=== PATIENT | male | born 1965 | race Caucasian/White ===

== ENCOUNTER → 2017-04-09 | Outpatient (CLI) | payer BC ==
--- NOTE | 2017-04-09 16:45 | CT ---
EXAMINATION TYPE: CT lumbar spine wo con DATE OF EXAM: 04/09/2017 COMPARISON: MRI lumbar spine 02/22/2010 HISTORY: Patient complains of right buttock, right knee, and right first digit numbness. CT DLP: 983 mGycm CONTRAST: None TECHNIQUE: CT of the lumbar spine is performed on a spiral scan at 3 mm thick sections. Reconstructed images are performed in the coronal and sagittal planes. FINDINGS: T12-L1: No focal disc herniation or significant disc bulge is evident. No spinal canal stenosis or neural foraminal stenosis is present. L1-L2: No focal disc herniation or significant disc bulge is evident. No spinal canal stenosis or n eural foraminal stenosis is present L2-L3: No focal disc herniation or significant disc bulge is evident. No spinal canal stenosis or n eural foraminal stenosis is present L3-L4: No focal disc herniation or significant disc bulge is evident. No spinal canal stenosis or n eural foraminal stenosis is present L4-L5: Broad-based disc bulge is present with moderate anterior thecal sac compression. No AP spinal canal stenosis present. Some mild neural foraminal narrowing may be present. No nerve root impingemen t is identified. L5-S1: Mild degenerative disc changes are present. No AP spinal canal stenosis present. Neural forame n are patent. Vertebral alignment appears normal. IMPRESSION: 1. Mild broad-based disc bulge L4-5 with moderate anterior thecal sac flattening. No spinal canal doron nosis present. 2. Foraminal narrowing L4-5 secondary to disc bulging. 3. Degenerative disc changes L5-S1
== END | disposition home or self-care (01) ==
LOC: RADCTMAIN 15:45
PROVIDERS: ATTEND Family Medicine
DX: M99.73 Connective tissue and disc stenosis of intervertebral foramina of lumbar region (principal); M51.16 Intervertebral disc disorders with radiculopathy, lumbar region; M47.27 Other spondylosis with radiculopathy, lumbosacral region
CPT/HCPCS: 72131

== ENCOUNTER → 2017-05-09 | Outpatient (CLI) | payer BC ==
--- NOTE | 2017-05-11 13:36 | US ---
EXAMINATION TYPE: US bladder DATE OF EXAM: 05/10/2017 COMPARISON: NONE CLINICAL HISTORY: R33.9 Retention of urine. EXAM MEASUREMENTS: Post Void Residual Volume: 323 mL Bladder is satisfactorily distended without intraluminal mass or wall thickening. Bilateral distal ur eter jets are seen. After voiding twice significant amount of residual urine is present. Color Doppler performed to assess ureteral jets. Bilateral Jets seen: Yes Normal Post Void Residual (less than 50ml): No IMPRESSION: Abnormal post void residual is confirmed.
== END | disposition home or self-care (01) ==
LOC: RADUSWWP 07:47
PROVIDERS: ATTEND Family Medicine
DX: R33.9 Retention of urine, unspecified (principal)
CPT/HCPCS: 76857

== ENCOUNTER 2019-12-03 18:09 | Emergency (ER) | payer BC ==
[2019-12-03 18:24] VITALS: RESP 18
[2019-12-03] MEDS ORDERED: SODIUM CHLORIDE 0.9% 1,000 ML IV STA (18:34)
[2019-12-03] MEDS ORDERED: KETOROLAC 30 MG/ML 1 ML VIAL IVP STA (18:34)
[2019-12-03] MEDS ORDERED: METOCLOPRAMIDE 5 MG/ML 2 ML VIAL IVP STA (18:34)
--- NOTE | 2019-12-03 18:37 | ED ---
General Adult HPI - General Chief complaint: Abdominal Pain Stated complaint: Right flank pain Time Seen by Provider: 12/03/19 18:27 Source: patient, RN notes reviewed Mode of arrival: ambulatory Limitations: no limitations - History of Present Illness Initial comments: Patient is a pleasant 54-year-old male presenting to the emergency Department with right flank pain. Onset of symptoms was around 3 hours ago. Sudden onset. Discomfort is right posterior flank. Patient has urinary urgency however has not urinated. Patient has nausea however no vomiting. No fever. No history of similar symptoms previously. Patient states it is difficult to get comfortable. No history of similar symptoms previously. - Related Data Home Medications Medication Instructions Recorded Confirmed Albuterol Inhaler [Ventolin Hfa 2 puff INHALATION RT-Q4H PRN 12/03/19 12/03/19 Inhaler] Cetirizine HCl [Zyrtec] 10 mg PO HS 12/03/19 12/03/19 Unknown Sports Cream (For 1 applic TOPICAL ONCE PRN 12/03/19 12/03/19 Arthritis) Previous Rx's Medication Instructions Recorded Ketorolac [Toradol] 10 mg PO Q6HR PRN #15 tab 12/03/19 Metoclopramide HCl [Reglan] 10 mg PO Q6HR PRN #15 tablet 12/03/19 Allergies Allergy/AdvReac Type Severity Reaction Status Date / Time No Known Allergies Allergy Verified 12/03/19 18:53 Review of Systems ROS Statement: Those systems with pertinent positive or pertinent negative responses have been documented in the HPI. ROS Other: All systems not noted in ROS Statement are negative. Constitutional: Denies: fever Eyes: Denies: eye pain ENT: Denies: ear pain Respiratory: Denies: cough Cardiovascular: Denies: chest pain Endocrine: Denies: fatigue Gastrointestinal: Reports: as per HPI, nausea. Denies: vomiting Genitourinary: Reports: as per HPI, urgency Musculoskeletal: Reports: as per HPI Skin: Denies: rash Neurological: Denies: weakness Past Medical History Past Medical History: Asthma History of Any Multi-Drug Resistant Organisms: None Reported Past Surgical History: Prostate Surgery Past Psychological History: Anxiety Smoking Status: Never smoker Past Alcohol Use History: Occasional General Exam Limitations: no limitations General appearance: alert, in no apparent distress Head exam: Present: normocephalic Eye exam: Present: normal appearance Neck exam: Present: normal inspection Respiratory exam: Present: normal lung sounds bilaterally Cardiovascular Exam: Present: regular rate, normal rhythm Expanded Peripheral pulses: 2+: Dorsalis Pedis (R), Dorsalis Pedis (L) GI/Abdominal exam: Present: soft, normal bowel sounds. Absent: distended, te nderness, guarding, rebound, rigid, pulsatile mass Extremities exam: Present: normal inspection Back exam: Present: other (Mild tenderness below the right CVA) Neurological exam: Present: alert. Absent: motor sensory deficit Psychiatric exam: Present: normal affect, normal mood Skin exam: Present: normal color Course Vital Signs 12/03/19 18:20 Temperature 98.6 F Pulse Rate 56 L Respiratory 18 Rate Blood Pressure 126/81 O2 Sat by Pulse 100 Oximetry Medical Decision Making - Medical Decision Making Patient reevaluated and significant improved. Patient sitting upright in bed and is comfortable. Patient updated on results. - Lab Data Result diagrams: 12/03/19 18:52 12/03/19 18:52 Lab Results 12/03/19 12/03/19 12/03/19 Range/Units 18:52 18:52 18:52 WBC 9.9 (3.8-10.6) k/uL RBC 4.78 (4.30-5.90) m/uL Hgb 14.8 (13.0-17.5) gm/dL Hct 43.8 (39.0-53.0) % MCV 91.5 (80.0-100.0) fL MCH 30.9 (25.0-35.0) pg MCHC 33.8 (31.0-37.0) g/dL RDW 12.2 (11.5-15.5) % Plt Count 192 (150-450) k/uL Neutrophils % 93 % Lymphocytes % 3 % Monocytes % 2 % Eosinophils % 1 % Basophils % 0 % Neutrophils # 9.2 H (1.3-7.7) k/uL Lymphocytes # 0.3 L (1.0-4.8) k/uL Monocytes # 0.2 (0-1.0) k/uL Eosinophils # 0.1 (0-0.7) k/uL Basophils # 0.0 (0-0.2) k/uL PT (9.0-12.0) sec INR (<1.2) APTT (22.0-30.0) sec Sodium 139 (137-145) mmol/L Potassium 3.6 (3.5-5.1) mmol/L Chloride 104 (98-107) mmol/L Carbon Dioxide 24 (22-30) mmol/L Anion Gap 11 mmol/L BUN 15 (9-20) mg/dL Creatinine 1.22 (0.66-1.25) mg/dL Est GFR (CKD-EPI)AfAm 79 (>60 ml/min/1.73 sqM) Est GFR (CKD-EPI)NonAf 68 (>60 ml/min/1.73 sqM) Glucose 155 H (74-99) mg/dL Calcium 9.1 (8.4-10.2) mg/dL Total Bilirubin 2.0 H (0.2-1.3) mg/dL AST 24 (17-59) U/L ALT 20 (4-49) U/L Alkaline Phosphatase 99 (38-126) U/L Total Protein 7.0 (6.3-8.2) g/dL Albumin 4.8 (3.5-5.0) g/dL Amylase 57 (30-110) U/L Lipase 43 (23-300) U/L Urine Color Yellow Urine Appearance Clear (Clear) Urine pH 5.5 (5.0-8.0) Ur Specific [place] 1.019 (1.001-1.035) Urine Protein Negative (Negative) Urine Glucose (UA) Negative (Negative) Urine Ketones 1+ H (Negative) Urine Blood Moderate H (Negative) Urine Nitrite Negative (Negative) Urine Bilirubin Negative (Negative) Urine Urobilinogen <2.0 (<2.0) mg/dL Ur Leukocyte Esterase Negative (Negative) Urine RBC 37 H (0-5) /hpf Urine WBC 3 (0-5) /hpf Hyaline Casts 1 (0-2) /lpf Urine Mucus Rare H (None) /hpf 12/02/ Range/Units 18:52 WBC (3.8-10.6) k/uL RBC (4.30-5.90) m/uL Hgb (13.0-17.5) gm/dL Hct (39.0-53.0) % MCV (80.0-100.0) fL MCH (25.0-35.0) pg MCHC (31.0-37.0) g/dL RDW (11.5-15.5) % Plt Count (150-450) k/uL Neutrophils % % Lymphocytes % % Monocytes % % Eosinophils % % Basophils % % Neutrophils # (1.3-7.7) k/uL Lymphocytes # (1.0-4.8) k/uL Monocytes # (0-1.0) k/uL Eosinophils # (0-0.7) k/uL Basophils # (0-0.2) k/uL PT 10.5 (9.0-12.0) sec INR 1.0 (<1.2) APTT 23.5 (22.0-30.0) sec Sodium (137-145) mmol/L Potassium (3.5-5.1) mmol/L Chloride (98-107) mmol/L Carbon Dioxide (22-30) mmol/L Anion Gap mmol/L BUN (9-20) mg/dL Creatinine (0.66-1.25) mg/dL Est GFR (CKD-EPI)AfAm (>60 ml/min/1.73 sqM) Est GFR (CKD-EPI)NonAf (>60 ml/min/1.73 sqM) Glucose (74-99) mg/dL Calcium (8.4-10.2) mg/dL Total Bilirubin (0.2-1.3) mg/dL AST (17-59) U/L ALT (4-49) U/L Alkaline Phosphatase (38-126) U/L Total Protein (6.3-8.2) g/dL Albumin (3.5-5.0) g/dL Amylase (30-110) U/L Lipase (23-300) U/L Urine Color Urine Appearance (Clear) Urine pH (5.0-8.0) Ur Specific [place] (1.001-1.035) Urine Protein (Negative) Urine Glucose (UA) (Negative) Urine Ketones (Negative) Urine Blood (Negative) Urine Nitrite (Negative) Urine Bilirubin (Negative) Urine Urobilinogen (<2.0) mg/dL Ur Leukocyte Esterase (Negative) Urine RBC (0-5) /hpf Urine WBC (0-5) /hpf Hyaline Casts (0-2) /lpf Urine Mucus (None) /hpf - Radiology Data Radiology results: report reviewed (Computed tomography scan of the abdomen and pelvis shows mild right-sided hydronephrosis and hydroureter with 3 mm calculi right UVJ.), image reviewed Disposition Clinical Impression: Ureterolithiasis Disposition: HOME SELF-CARE Condition: Stable Instructions (If sedation given, give patient instructions): Kidney Stones (ED) Additional Instructions: Please follow-up with primary care physician in the next couple days for recheck. Do not get dehydrated. Return for fevers, increased pain, vomiting, worsening symptoms or other concerns. Prescriptions sent to [facility] Prescriptions: Metoclopramide HCl [Reglan] 10 mg PO Q6HR PRN #15 tablet PRN Reason: Nausea Ketorolac [Toradol] 10 mg PO Q6HR PRN #15 tab PRN Reason: Pain Is patient prescribed a controlled substance at d/c from ED?: No Referrals: Ankur Murcia MD [Primary Care Provider] - 1-2 days Time of Disposition: 20:00
[2019-12-03 19:11] LABS: Appearance,Urine Clear (Clear); Bilirubin,Urine Negative (Negative); Blood,Urine Moderate (Negative); Color,Urine Yellow; Glucose,Urine (UA) Negative (Negative); Hyaline Casts,Urine 1 /lpf (0-2); Ketones,Urine 1+ (Negative); Leukocyte Esterase,Urine Negative (Negative); Mucus,Urine Rare /hpf; Nitrite,Urine Negative (Negative); PH, Urine 5.5 (5.0-8.0); Protein,Urine Negative (Negative); RBC,Urine 37 /hpf (0-5); Specific Gravity,Urine 1.019 (1.001-1.035); Urobilinogen,Urine <2.0 mg/dL (<2.0); WBC,Urine 3 /hpf (0-5)
[2019-12-03 19:12] LABS: Basophils % (A) 0 %; Eosinophils # (A) 0.1 k/uL (0-0.7); Eosinophils % (A) 1 %; HCT 43.8 % (39.0-53.0); HGB 14.8 gm/dL (13.0-17.5); Lymphocytes # (A) 0.3 k/uL (1.0-4.8); Lymphocytes % (A) 3 %; MCH 30.9 pg (25.0-35.0); MCHC 33.8 g/dL (31.0-37.0); MCV 91.5 fL (80.0-100.0); Mean Platelet Volume 8.9; Monocytes # (A) 0.2 k/uL (0-1.0); Monocytes % (A) 2 %; Neutrophils # (A) 9.2 k/uL (1.3-7.7); Neutrophils % (A) 93 %; Platelet Count 192 k/uL (150-450); RBC 4.78 m/uL (4.30-5.90); RDW 12.2 % (11.5-15.5); WBC 9.9 k/uL (3.8-10.6)
[2019-12-03 19:14] LABS: Partial Thromboplastin Time 23.5 sec (22.0-30.0); Prothrombin Time 10.5 sec (9.0-12.0)
[2019-12-03 19:31] LABS: Albumin 4.8 g/dL (3.5-5.0); Calcium 9.1 mg/dL (8.4-10.2); Potassium 3.6 mmol/L (3.5-5.1)
--- NOTE | 2019-12-03 19:53 | CT ---
EXAMINATION TYPE: CT abdomen pelvis wo con DATE OF EXAM: 12/03/2019 COMPARISON: None HISTORY: Right flank pain. CT DLP: 445 mGycm Automated exposure control for dose reduction was used. Multiple axial sections were obtained from the diaphragm to the floor the pelvis with no contrast. FINDINGS: Lung bases are clear. There is no pleural effusion. Heart size is normal. There is no pericardial eff usion. Liver spleen stomach pancreas gallbladder appear normal. Bile ducts are not dilated. There is no adrenal mass. There is mild right-sided hydronephrosis and perinephric edema. There is probably a 3 mm calculus at the right ureteral vesicle junction. Bladder distends smoothly. There is no inguinal hernia. There is no free fluid in the pelvis. There is no mesenteric edema. There is no ascites or free air. There is no evidence of bowel obstruction. Appendix is posterior and superior and appears normal. Lumbar vertebra have normal alignment. Disc spaces are fairly normal. There is no compression fractur e. Posterior elements are intact. Bony pelvis appears intact. IMPRESSION: Right-sided hydronephrosis and hydroureter with tiny calculus at the right ureterovesical junction ob structing the right upper collecting system. No other renal calculus seen. normal appendix.
--- NOTE | 2019-12-03 19:55 | XR ---
EXAMINATION TYPE: XR KUB DATE OF EXAM: 12/03/2019 COMPARISON: NONE HISTORY: Abdominal pain TECHNIQUE: 2 views upright FINDINGS: There is no sign of intestinal obstruction or pneumoperitoneum. Fecal pattern is normal. Th ere is no evidence of a mass. Lung bases are clear. IMPRESSION: Nonacute abdomen.
[2019-12-03 20:16] VITALS: BP 122/71; PULSE 71; TEMP 98
== END 2019-12-03 20:16 | disposition home or self-care (01) ==
LOC: EC 18:09
DX: N13.2 Hydronephrosis with renal and ureteral calculous obstruction (principal); J45.909 Unspecified asthma, uncomplicated; Z79.51 Long term (current) use of inhaled steroids
CPT/HCPCS: 99284; 96374; 96375; 96361; 36415; 80053; 82150; 83690; 85025; 85610; 85730; 81001; 74018; 74176; J2765; J1885

== ENCOUNTER 2021-07-20 15:30 | Emergency (ER) | payer BC ==
[2021-07-20 15:41] VITALS: RESP 18
[2021-07-20 16:53] LABS: Basophils % (A) 1 %; Eosinophils # (A) 0.1 k/uL (0-0.7); Eosinophils % (A) 2 %; HGB 14.4 gm/dL (13.0-17.5); Lymphocytes # (A) 0.7 k/uL (1.0-4.8); Lymphocytes % (A) 19 %; MCH 32.1 pg (25.0-35.0); MCHC 34.2 g/dL (31.0-37.0); MCV 93.7 fL (80.0-100.0); Mean Platelet Volume 8.6; Monocytes # (A) 0.2 k/uL (0-1.0); Monocytes % (A) 6 %; Neutrophils # (A) 2.6 k/uL (1.3-7.7); Neutrophils % (A) 70 %; Platelet Count 194 k/uL (150-450); RBC 4.49 m/uL (4.30-5.90); RDW 12.7 % (11.5-15.5); WBC 3.8 k/uL (3.8-10.6)
--- NOTE | 2021-07-20 16:54 | XR ---
EXAMINATION TYPE: XR chest 2V DATE OF EXAM: 07/20/2021 COMPARISON: NONE HISTORY: Chest pain TECHNIQUE: 2 views FINDINGS: Heart and mediastinum are normal. Lungs are clear. Diaphragm is normal. Bony thorax appears normal. IMPRESSION: Normal chest.
[2021-07-20 17:07] LABS: Albumin 4.4 g/dL (3.5-5.0); Calcium 8.8 mg/dL (8.4-10.2); Magnesium 2.2 mg/dL (1.6-2.3); Potassium 4.1 mmol/L (3.5-5.1); Total Bilirubin 1.4 mg/dL (0.2-1.3)
[2021-07-20 17:51] LABS: Partial Thromboplastin Time 28.6 sec (22.0-30.0)
--- NOTE | 2021-07-20 17:58 | ED ---
Chest Pain HPI - General Chief Complaint: Chest Pain Stated Complaint: Chest Pain Time Seen by Provider: 07/20/21 16:38 Source: patient Mode of arrival: wheelchair Limitations: no limitations - History of Present Illness Initial Comments: 85-year-old male with past medical history of asthma presents to the emergency department with chest pain. States he's had intermittent chest pain for the past week. Located substernal without radiation. Denies any provocative or palliative factors. Describes it as a pressure. Patient awoke this morning and had significant pain around 9 AM. Did not take any medications for his symptoms. States that the pain has almost entirely resolved at this time. No associated fevers, chills. No nausea or vomiting. No ripping or tearing sensation to his back. No family history of sudden cardiac or coronary disease at early age. He states he had a stress test 15 years ago and was normal. Denies history of peptic ulcer disease or gastritis. Patient is concerned for viral symptoms as well. States that he had some diarrhea last week. Also reports mild discomfort in his throat and chills. Patient was never tested for Covid but assumed it was positive. Denies any sick contacts. The viral symptoms started approximately 2 weeks ago and almost are entirely resolved. No vomiting. 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 ROS Other: All systems not noted in ROS Statement are negative. EKG Findings - EKG Comments: EKG Findings:: EKG demonstrates sinus rhythm with a rate of 60. CO interval 166. QRS 100. QTC 413. No acute ST segment elevations or depressions concerning for ischemic changes Past Medical History Past Medical History: Asthma History of Any Multi-Drug Resistant Organisms: None Reported Past Surgical History: Prostate Surgery Past Psychological History: Anxiety Smoking Status: Never smoker Past Alcohol Use History: Occasional General Exam Limitations: no limitations Course Vital Signs 07/20/21 07/20/21 07/20/21 15:39 18:07 20:14 Temperature 98.8 F 98.7 F Pulse Rate 75 56 L 57 L Respiratory 18 18 18 Rate Blood Pressure 140/90 123/77 122/85 O2 Sat by Pulse 98 99 97 Oximetry Chest Pain MDM - MDM 55-year-old male with past medical history of asthma presents to the emergency department with chest pain. States he's had intermittent chest pain for the past week. Located substernal without radiation. Denies any provocative or palliative factors. Describes it as a pressure. Patient awoke this morning and had significant pain around 9 AM. Did not take any medications for his symptoms. States that the pain has almost entirely resolved at this time. No associated fevers, chills. No nausea or vomiting. No ripping or tearing sensation to his back. No family history of sudden cardiac or coronary disease at early age. He states he had a stress test 15 years ago and was normal. Denies history of peptic ulcer disease or gastritis. Patient is concerned for viral symptoms as well. States that he had some diarrhea last week. Also reports mild discomfort in his throat and chills. Patient was never tested for Covid but assumed it was positive. Denies any sick contacts. The viral symptoms started approximately 2 weeks ago and almost are entirely resolved. No vomiting. 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 You may have this completed through your PCP. Please return to the emergency room for any new or worsening symptoms Is patient prescribed a controlled substance at d/c from ED?: No Referrals: Ankur Murcia MD [Primary Care Provider] - 1-2 days Time of Disposition: 19:42
[2021-07-20] MEDS ORDERED: LABETALOL 5 MG/ML VIAL MDV IVP STA (18:35)
[2021-07-20] MEDS ORDERED: PANTOPRAZOLE 40 MG/10 ML VIAL IVP STA (18:36)
[2021-07-20] MEDS ORDERED: DEXAMETHASONE SOD PHOSPHATE 10 MG/ML 1 ML VIAL IVP STA (19:37)
[2021-07-20 20:15] VITALS: BP 122/85; PULSE 57; TEMP 98.7
== END 2021-07-20 20:15 | disposition home or self-care (01) ==
LOC: EC 15:30
DX: R07.89 Other chest pain (principal); J02.9 Acute pharyngitis, unspecified; J45.909 Unspecified asthma, uncomplicated; F41.9 Anxiety disorder, unspecified
CPT/HCPCS: 99285; 96374; 96375; 36415; 93005; 80053; 83735; 84484; 85025; 85610; 85730; 87635; 71046; J1100; C9113

== ENCOUNTER → 2021-08-13 | Outpatient (CLI) | payer BC ==
--- NOTE | 2021-08-13 13:05 | NM ---
EXAMINATION TYPE: NM stress cardiolite complete DATE OF EXAM: 08/13/2021 COMPARISON: NONE HISTORY: Chest pain TECHNIQUE: After the intravenous administration of 10.1 mCi Tc 99m Sestamibi - Rest images obtained 50 minutes post injection. The patient exercised using a MARY protocol and 1 minute prior to peak exercise was injected with 24.2 mCi Tc 99m Sestamibi - Stress images obtained 20 minutes post injecti on. FINDINGS: Targeted heart rate was achieved during performance of the study patient achieved 85% of predicted ia ximal heart rate. Review of stress and rest SPECT images demonstrates some decreased anterior wall up take on stress as compared to rest images extending towards the lateral wall towards the base the hea rt. Gated analysis shows questionable paradoxical apical wall motion with an estimated left ventricu lar ejection fraction of 50 %. IMPRESSION: Stress-induced left ventricular myocardial ischemia is suspected, consider echocardiographic correlat ion of cardiac wall motion A Yellow level critical message alert has been initiated for Santo Elizalde Jr, DO via the [employer] Critical Results System on 08/13/2021 1:02 PM. This message alert has been sent to Santo horton Jr, DO via the preferences provided by the clinician for the receipt of Radiology Critical Finding s. Message ID [id number].
--- NOTE | 2021-08-13 15:42 | EST ---
EXERCISE STRESS AGE: 55 SEX: M HT: 6'2" WT: 170 lbs. PROTOCOL: Cardiolite Stress STAGE: 4 DURATION OF EXERCISE: 10:46 HEART RATE REST: 73 BLOOD PRESSURE REST: 128/84 MAXIMUM HEART RATE ACHIEVED: 142 MAXIMUM BLOOD PRESSURE: 181/78 85% MPHR: 142 100% MPHR: 167 METS: 11.8 INDICATIONS: Chest pain. CLINICAL INFORMATION: STRESS DATA: Heart rate is 75. Pressure is 128/84 mmHg. Baseline EKG showed sinus mechanism. The patient exercised on the treadmill according to Sb protocol for a total of 10 minutes and achieved 11.8 METS. Max heart rate was 142, which is about 85% of maximum predicted heart rate, and maximum blood pressure was 181/73 mmHg. Clinically the patient did not have any symptoms. The EKG did not show any significant ST or T- wave abnormalities concerning for ischemia. CONCLUSION: 1. Excellent exercise tolerance. 2. Normal EKG in response to exercise. 3. Please follow up on the Cardiolite portion on a separate report from Radiology Department. MMODL / IJN: [id number] /
--- NOTE | 2021-08-14 11:40 | ECHOF ---
Referral Reason:R07.89 chest pain MEASUREMENTS -------- HEIGHT: 182.9 cm WEIGHT: 77.1 kg BP: IVSd: 1.0 cm (0.6 - 1.1) LVIDd: 3.7 cm (3.9 - 5.3) LVPWd: 1.2 cm (0.6 - 1.1) IVSs: 1.3 cm LVIDs: 2.7 cm LVPWs: 1.7 cm Ao Diam: 3.1 cm (2.0 - 3.7) AV Cusp: 1.8 cm (1.5 - 2.6) LA Diam: 3.2 cm (2.7 - 3.8) MV EXCURSION: 22.907 mm (> 18.000) EPSS: 1.0 cm MV E Al: 0.50 m/s MV DecT: 198 ms MV A Al: 0.47 m/s MV E/A Ratio: 1.08 RAP: 5.00 mmHg RVSP: 18.23 mmHg FINDINGS -------- This was a technically difficult study with suboptimal views. The left ventricular size is normal. Left ventricular wall thickness is normal. Overall left vent ricular systolic function is low-normal with, an EF between 50 - 55 %. The right ventricle is normal in size. The left atrial size is normal. The right atrial size is normal. Lumason used The aortic valve was not well visualized. The mitral valve is normal. There is trace mitral regurgitation. The tricuspid valve appears structurally normal. Trace tricuspid regurgitation present. Right lynn tricular systolic pressure is normal at < 35 mmHg. There is no pulmonic regurgitation present. The aortic root size is normal. IVC Not well visulized. There is no pericardial effusion. CONCLUSIONS -------- 1. The left ventricular size is normal. 2. Left ventricular wall thickness is normal. 3. Overall left ventricular systolic function is low-normal with, an EF between 50 - 55 %. 4. There is trace mitral regurgitation. 5. Trace tricuspid regurgitation present. 6. There is no pericardial effusion. CROSSING GUARD: [place]i Oro [facility]
== END | disposition home or self-care (01) ==
LOC: RADNMMAIN 08:40
PROVIDERS: ATTEND Family Medicine
DX: I08.1 Rheumatic disorders of both mitral and tricuspid valves (principal)
CPT/HCPCS: 93017; 93306; 78452; A9500; Q9950

== ENCOUNTER 2022-01-14 16:57 | Emergency (ER) | payer BC ==
[2022-01-14 17:17] VITALS: BP 143/89; PULSE 69; RESP 14; TEMP 97.7
--- NOTE | 2022-01-14 17:42 | ED ---
General Adult HPI - General Chief complaint: Skin/Abscess/Foreign Body Stated complaint: Finger injury Time Seen by Provider: 01/14/22 17:22 Source: patient Mode of arrival: ambulatory Limitations: no limitations - History of Present Illness Initial comments: This 56-year-old male presents with a complaint of having a stiff neck. He states that this started approximately 4 days ago. He denies any actual head or neck injuries. He denies any physical activity. He denies any radiation of the pain. There's been no fevers or chills. He also complains of a scratchy throat as well as slight headache. He states that he has had some moderate fatigue recently which is abnormal for him. He denies any known sick exposures. He apparently was poked in the right index finger while putting on a shower head 8 days ago and was worried about the possibility of tetanus but I do not feel as though this is consistent with tetanus infection. He denies any significant cough or congestion. There is no difficulty in breathing. No other complaints or modifying factors. - Related Data Home Medications Medication Instructions Recorded Confirmed Cholecalciferol [Vitamin D3 (25 25 mcg PO DAILY 07/20/21 07/20/21 Mcg = 1000 Iu)] Loratadine [Claritin] 10 mg PO DAILY PRN 07/20/21 07/20/21 Multivitamins, Thera [Multivitamin 1 tab PO DAILY 07/20/21 07/20/21 (formulary)] Zinc 50 mg PO DAILY 07/20/21 07/20/21 Allergies Allergy/AdvReac Type Severity Reaction Status Date / Time No Known Allergies Allergy Verified 01/14/22 17:16 Review of Systems ROS Statement: Those systems with pertinent positive or pertinent negative responses have been documented in the HPI. ROS Other: All systems not noted in ROS Statement are negative. Past Medical History Past Medical History: Asthma History of Any Multi-Drug Resistant Organisms: None Reported Past Surgical History: Prostate Surgery Past Psychological History: Anxiety Smoking Status: Never smoker Past Alcohol Use History: Occasional General Exam - General Exam Comments Initial Comments: GENERAL: The patient is well nourished and well hydrated. VITAL SIGNS: Heart rate, blood pressure, respiratory rate reviewed as recorded in nurse's notes. EYES: Pupils are round and reactive. Extraocular movements are intact. No conjunctival / lid redness or swelling. ENT: No external evidence of injury, swelling, or ecchymosis. Airway is patent. Throat is clear. NECK: There is very minimal tenderness noted to the bilateral paracervical musculature. Is excellent range of motion of the neck with no meningeal signs. No swelling or evidence of injury. No subcutaneous emphysema. Trachea is midline. No thyroid mass. HEART: Regular rate and rhythm. Good peripheral pulses. LUNGS/CHEST: Breath sounds clear and equal bilaterally. No rales, rhonchi, or wheezes. No ecchymosis, subcutaneous emphysema, or tenderness. ABDOMEN: Abdomen soft without tenderness. No palpable masses or organomegaly. No peritoneal signs. No abdominal wall swelling or ecchymosis. EXTREMITIES: No extremity tenderness. Normal muscle tone and function. No thoracolumbar tenderness. NEUROLOGIC: Sensation is grossly intact. Cranial nerve exam reveals face is symmetrical, tongue is midline, speech is clear. SKIN: No abrasions or ecchymosis is noted. No induration or masses noted. PSYCHIATRIC: Alert and oriented. Appropriate behavior and judgment. Limitations: no limitations Course Vital Signs 01/14/22 17:14 Temperature 97.7 F Pulse Rate 69 Respiratory 14 Rate Blood Pressure 143/89 O2 Sat by Pulse 97 Oximetry Medical Decision Making - Medical Decision Making The patient was seen and examined. It is not felt as though his symptoms are consistent with tetanus and this is explained to him. His symptoms do seem somewhat consistent with the new strain of Covid and therefore this test is completed. The Covid test came back negative. The exact cause of his symptomatology is not definitively determine but it potentially could be related to a viral infection. He appears quite well clinically. It is felt as though he stable for discharge. Return parameters are discussed. Close follow-up with primary care recommended. - Lab Data Lab Results 01/14/22 Range/Units 17:44 Coronavirus (PCR) Not Detected (Not Detectd) Disposition Clinical Impression: Neck pain, Fatigue Disposition: HOME SELF-CARE Condition: Good Instructions (If sedation given, give patient instructions): Neck Pain (ED) Additional Instructions: Please use tylenol and/or motrin as needed for pain or fever. Is patient prescribed a controlled substance at d/c from ED?: No Referrals: Santo Elizalde Jr, DO [Primary Care Provider] - 1-2 days Time of Disposition: 18:17
== END 2022-01-14 18:26 | disposition home or self-care (01) ==
LOC: EC 16:57
DX: M54.2 Cervicalgia (principal); R53.81 Other malaise; J45.909 Unspecified asthma, uncomplicated; Z20.822 Contact with and (suspected) exposure to COVID-19
CPT/HCPCS: 87635; 99283

== ENCOUNTER → 2024-01-27 | Outpatient (CLI) | payer BC ==
--- NOTE | 2024-01-27 16:43 | XR ---
EXAMINATION TYPE: XR knee limited LT DATE OF EXAM: 01/27/2024 COMPARISON: None HISTORY: Pain lateral and medial side left knee TECHNIQUE: 2 view left knee FINDINGS: Joint spaces are preserved. No joint effusion is evident. Anterior superior patellar spur i s present. No acute fracture or dislocation is evident. Follow up exams can be performed 7-10 days from acute tr auma for continued pain IMPRESSION: 1. No acute osseous abnormality two-view left knee
== END | disposition home or self-care (01) ==
LOC: RADXRMAIN 16:22
PROVIDERS: ATTEND Family Medicine
DX: M25.562 Pain in left knee (principal); M25.362 Other instability, left knee

== ENCOUNTER 2024-02-26 07:25 | Day surgery (SDC) | payer BC ==
[2024-02-24 16:01] VITALS: BMI 22.3
[2024-02-26] MEDS: IV FLUID CONTINUATION 1,000 ML IV ONE (07:53)
[2024-02-26 07:59] VITALS: TEMP 97
[2024-02-26] MEDS: LACTATED RINGERS 1,000 ML IV SCH (08:02)
[2024-02-26] MEDS ORDERED: PROPOFOL 10 MG/ML 20 ML VIAL IV ONE (08:16)
--- NOTE | 2024-02-26 08:23 | P.GSHP ---
History of Present Illness H&P Date: 02/26/24 Chief Complaint: Screening colonoscopy This a 58-year-old male presents today for screening colonoscopy. Patient denies any significant GI complaints. Past Medical History Past Medical History: Asthma, GERD/Reflux, Hyperlipidemia Additional Past Medical History / Comment(s): Varicose veins. "Minor kidney issues, no treatment". Slipped disc in back. Hx migraine X1. History of Any Multi-Drug Resistant Organisms: None Reported Past Surgical History: Back Surgery, Prostate Surgery Past Anesthesia/Blood Transfusion Reactions: No Reported Reaction, Motion Sickness Smoking Status: Never smoker - Past Family History Father Family Medical History: Cancer Additional Family Medical History / Comment(s): Leukemia. Medications and Allergies Home Medications Medication Instructions Recorded Confirmed Type Albuterol Inhaler [Ventolin Hfa 1 puff INHALATION QID PRN 02/24/24 02/26/24 History Inhaler] Atorvastatin Calcium 10 mg PO DAILY 02/24/24 02/26/24 History Allergies Allergy/AdvReac Type Severity Reaction Status Date / Time No Known Allergies Allergy Verified 02/26/24 07:55 Surgical - Exam Vital Signs Temp Pulse Resp BP Pulse Ox 97.0 F L 70 16 118/76 95 02/26/24 07:57 02/26/24 07:57 02/26/24 07:57 02/26/24 07:57 02/26/24 07:57 - General well developed, well nourished, no distress - Eyes PERRL - ENT normal pinna, normal nares - Neck no masses - Respiratory normal expansion - Cardiovascular Rhythm: regular - Abdomen Abdomen: soft, non tender Assessment and Plan Assessment: Will perform screening colonoscopy.
--- NOTE | 2024-02-26 08:37 | P.OP ---
Date of Procedure: 02/26/24 Preoperative Diagnosis: Screening colonoscopy Postoperative Diagnosis: Diverticulosis Procedure(s) Performed: Colonoscopy Anesthesia: MAC Surgeon: Trey Dumont Pathology: none sent Condition: stable Disposition: PACU Description of Procedure: Patient was placed on the endoscopy table in the lateral position. He received IV sedation. Digital rectal exams performed. This revealed no abnormality. Flex colonoscope was then placed patient anus and passed throughout the entire colon. The ileocecal valve was visualized. The cecum, ascending and transverse colon appeared normal. The descending and sigmoid colon had mild diverticular changes. Scope was back the rectum this appeared normal. Scope withdrawn the patient.
[2024-02-26 09:01] VITALS: BP 112/68; PULSE 59; RESP 16
== END 2024-02-26 09:32 | disposition home or self-care (01) ==
LOC: ORWHC2ENDO 07:25
PROVIDERS: ATTEND Surgery
DX: Z12.11 Encounter for screening for malignant neoplasm of colon (principal); K57.30 Diverticulosis of large intestine without perforation or abscess without bleeding; J45.909 Unspecified asthma, uncomplicated; K21.9 Gastro-esophageal reflux disease without esophagitis; E78.5 Hyperlipidemia, unspecified; Z79.899 Other long term (current) drug therapy; Z80.6 Family history of leukemia
CPT/HCPCS: J2704; G0121; 45378